=== PATIENT | female | born 1960 | race Caucasian/White ===

== ENCOUNTER 2017-02-21 20:57 | Inpatient (IN) | payer MEDICARE, BC, SELFPAY | END 2017-03-01 09:10 | disposition home or self-care (01) | DRG 379 | PROVIDERS: Admitting Provider Internal Medicine Adolescent Medicine; Emergency Provider Emergency Medicine; Family Provider Internal Medicine Adolescent Medicine; Visit Provider Internal Medicine Adolescent Medicine | DX: K25.4 Chronic or unspecified gastric ulcer with hemorrhage (principal); D50.0 Iron deficiency anemia secondary to blood loss (chronic); I10 Essential (primary) hypertension; Z98.84 Bariatric surgery status | CPT/HCPCS: 36430; 43235; 36415; 80048; 80053; 84466; 84484; 85014; 85018; 85025; 86850; 86900; 86901; 86920; 86922; 93005; 96365; 99285; P9016 ==

== ENCOUNTER → 2017-04-09 15:42 | Outpatient (CLI) | payer MEDICARE, BC, SELFPAY ==
[2017-04-09 16:14] LABS: Basophils % 0.5 % (0.1-2.0); Eosinophils # 0.2 K/mm3 (0.0-0.4); Eosinophils % 3.1 % (0.1-12.0); Hemoglobin 10.1 g/dL (12.2-16.2); Lymphocytes # 1.1 K/mm3 (0.7-4.5); Lymphocytes % 20.9 K/mm3 (10-50); Mean Corpuscular HGB Conc 31.6 g/dL (31.8-35.4); Mean Corpuscular Hemoglobin 26.4 pg (27.0-31.2); Mean Corpuscular Volume 83.6 fl (81-99); Mean Platelet Volume 9.9 fl (7.4-10.4); Monocytes # 0.3 K/mm3 (0.1-1.0); Monocytes % 5.1 % (1.7-9.3); Neutrophils # 3.6 K/mm3 (1.8-7.8); Neutrophils % 70.3 % (37.0-80.0); Platelet Count 298 K/mm3 (142-424); Red Blood Count 3.83 M/mm3 (4.20-5.40); Red Cell Distribution Width 15.2 % (11.5-17.5); White Blood Count 5.1 K/mm3 (4.8-10.8)
[2017-04-09 17:15] LABS: Hemoglobin A1C 5.3 % (0.0-7.0)
[2017-04-09 18:04] LABS: Alanine Aminotransferase 72 U/L (12-78); Albumin Level 3.6 gm/dL (3.4-5.0); Albumin/Globulin Ratio 1.2 (1.1-1.8); Alkaline Phosphatase 148 U/L (46-116); Anion Gap 15.3 mEq/L (5-15); Aspartate Amino Transferase 50 U/L (15-37); Bilirubin,Total 0.5 mg/dL (0.2-1.0); Blood Urea Nitrogen 11 mg/dL (7-18); Calcium 8.7 mg/dL (8.5-10.1); Carbon Dioxide 27 mmol/L (21.0-32.0); Chloride 107 mmol/L (98-107); Creatinine,Serum 0.74 mg/dL (0.55-1.02); Estimated Glomerular Filt Rate 81 ml/min (>60); Ferritin 73 ng/mL (8-388); GFR (African American) 98 ML/MIN (>60); Glucose 96 mg/dL (74-106); Iron 37 ug/dl (28-170); Potassium 4.3 mmoL/L (3.5-5.1); Sodium 145 mmol/L (136-145); Total Protein,Serum 6.6 gm/dL (6.4-8.2)
[2017-04-11 15:16] LABS: Folate, Hemolysate 463.6 ng/mL (Not Estab.)
[2017-04-13 10:51] LABS: Folate, RBC 1561 ng/mL (>498); Hematocrit 29.7 % (34.0-46.6); Parathyroid Hormone Intact 42 pg/mL (15-65); Vitamin D 25 Hydroxy 30.9 ng/mL (30.0-100.0)
[2017-04-13 11:06] LABS: Methylmalonic Acid 262 nmol/L (0-378)
== END ==
PROVIDERS: PCP Internal Medicine Adolescent Medicine; Visit Provider Physician Assistant Surgical
DX: E83.10 Disorder of iron metabolism, unspecified (principal); D50.9 Iron deficiency anemia, unspecified; R53.83 Other fatigue; M19.90 Unspecified osteoarthritis, unspecified site; E66.01 Morbid (severe) obesity due to excess calories; E53.8 Deficiency of other specified B group vitamins; E55.9 Vitamin D deficiency, unspecified
CPT/HCPCS: 36415; 80053; 82131; 82652; 82728; 83036; 83540; 83970; 85025

== ENCOUNTER → 2017-04-18 11:14 | Outpatient (CLI) | payer MEDICARE, BC, SELFPAY ==
--- NOTE | 2017-04-18 11:22 | XR_ITS ---
XR hand RT min 3V HISTORY: ITS.REASON: NON DISPLACED FX RT LITTLE FINGER ORDERING PHYSICIAN: Kali Echeverria MD PATIENT AGE: 56 years COMPARISON: None FINDINGS: No previous exams are available for comparison at this institution under this name. No obvious fracture or dislocation. A tiny calcific density is present at the proximal and ulnar aspect of the distal phalanx of the fifth finger and could be related to a nondisplaced avulsion type injury. This however seen only on one view. Please correlate with previous radiographs and patient's symptoms. There has been prior arthrodesis of the wrist with a bone plate present along the distal radius spanning the wrist and along the proximal mid aspect of the third metacarpal. IMPRESSION: 1. No displaced fracture evident. 2. Possible nondisplaced avulsion injury of the distal phalanx of the fifth digit. 3. Prior wrist fusion
== END ==
PROVIDERS: PCP Internal Medicine Adolescent Medicine; Visit Provider Internal Medicine Adolescent Medicine
DX: S62.606D Fracture of unspecified phalanx of right little finger, subsequent encounter for fracture with routine healing (principal)
CPT/HCPCS: 73130